=== PATIENT | male | born 1975 | race Caucasian/White ===

== ENCOUNTER 2017-01-27 13:54 | Emergency (ER) | payer BC ==
--- NOTE | 2017-01-27 14:06 | PDOC ---
Foot / Ankle Injury - General Chief Complaint: Lower Extremity Problem/Injury Stated Complaint: RT FOOT INJURY Date Seen by Provider: 01/27/17 Time Seen by Provider: 14:02 Source: POSITIVE: Patient Exam Limitations: POSITIVE: No limitations Nurse's Notes Reviewed & Considered: Yes - History of Present Illness Initial Comments: Amaury is a 41 y/o male who presents with injury to the right foot. Patient hurt foot stepping on a toy. Rolled foot. Complains of pain at the lateral aspect of the foot. No pain at ankle. Worse with walking. Has not tried any pain medications. No weakness. No numbness. No tingling. Patient denies pain at the knee. Moderate in overall severity. Pain is sharp. Have you received a tetanus shot in the past 10 years?: Yes - Patient Allergies Allergies/Adverse Reactions: Allergies Allergy/AdvReac Type Severity Reaction Status Date / Time No Known Allergies Allergy Verified 01/27/17 13:56 - Patient Home Medications Home Medications: Home Medications Atomoxetine HCl [Strattera] 1 tab PO QD #90 cap 12/08/16 Past Medical History - heen HEENT History: Denies History Cardiovascular History: Denies History Respiratory History: Denies History Gastrointestinal History: Denies History Genitourinary History: Denies History Endocrine History: Denies History Musculoskeletal History: Denies History Prosthesis or Implant: No Neurological History: Denies History Blood Disorders: Denies History Psychiatric History: Anxiety Disorders, Depression, Denies History, Other ( please comment) Additional Psychiatric History: PANIC ATTACKS. History of Sexually Transmitted Diseases: No Cancer History: Denies History History of MDRO: Unknown History of Other Communicable Diseases: No Alcohol Use: Occasionally Substance Use Type: None, Alcohol Previous Surgical History: No Anesthesia Reactions: No Malignant Hyperthermia: No Significant Family History: No pertinent family hx Past Medical History Reviewed: Reviewed - No Changes Foot / Ankle Exam - General Appearance General Appearance: POSITIVE: Alert, Cooperative, No Acute Distress - Extremities Foot: POSITIVE: Other (ttp at the lateral aspect of the foot. ) Ankle: POSITIVE: Normal Inspection, Non-Tender, Normal ROM Gait: POSITIVE: Limited by Pain Neuro: POSITIVE: Sensation Normal, Motor Normal Vascular: POSITIVE: Full Pulses Tendons: POSITIVE: Tendon Function Normal Skin: POSITIVE: Warm, Dry - Respiratory / CVS Respiratory / CVS: POSITIVE: No Respiratory Distress, Heart Sounds Normal, Regular Rate/Rhythm, Breath Sounds Normal Foot / Ankle Progress - Patient's Progress MDM / ED Course: Patient is a 42 y/o male who presents with foot injury. Vitals are notable for mild HTN and examination demonstrates TTP on the lateral aspect of the foot. Differential diagnosis includes but is not limited to sprain, strain, fracture. There is no pain at the ankle or knee. XR demonstrates no evidence of acute fracture. Suspect most likely strain/sprain. Will treat symptomatically and have patient follow up with PCP as needed. Patient Care Time - Estimated PCT Patient Care Time (In Minutes): 10 Vital Signs - Recent Vital Signs Vital Signs: Vital Signs (Last 8 hours) Temp Pulse Resp BP Pulse Ox 01/27/17 13:55 97.2 F 92 16 143/99 94 - VS Reviewed Vital Signs Reviewed: Yes Discharge Clinical Impression: Musculoligamentous strain Discharge Disposition: Discharged to Home Condition: Fair Patient Instructions Given at Discharge: Foot Sprain (ED) Additional Instructions: Thank you for coming to the ER. Please use acetaminophen and ibuprofen as needed for pain. Please use post op shoe or esa wrap for support. Follow up with primary care provider if not improving in one week.
[2017-01-27 14:10] VITALS: RESP 16; TEMP 97.2
--- NOTE | 2017-01-27 14:32 | DI ---
HISTORY: Patient stepped on toy. Lateral foot pain. FINDINGS: Examination reveals no definite evidence of fracture or dislocation. IMPRESSION: 1. No acute osseous abnormalities.
== END 2017-01-27 15:02 | disposition home or self-care (01) ==
LOC: ER 13:54
DX: S96.811A Strain of other specified muscles and tendons at ankle and foot level, right foot, initial encounter (principal); W22.8XXA Striking against or struck by other objects, initial encounter
CPT/HCPCS: 73630; 99282